=== PATIENT | female | born 1980 | race Caucasian/White ===

== ENCOUNTER 2016-11-16 22:24 | Emergency (ER) | payer OTHER ==
[2016-11-16 22:44] VITALS: BMI 26.2
--- NOTE | 2016-11-17 00:32 | PDOC ---
History of Present Illness - History of Present Illness Initial Comments: 11/17/16 01:29 Patient is a 36 year old female with significant medical hx of asthma who is presenting to the ED with 2-3 days of lower back pain. Patient complains of bilateral lower back pain that radiates up her back and that is constant. Her pain does not radiate downward or around to her abdomen. The patient also endorses some shortness of breath and an episode of nausea and vomiting. The patient states she's also had a metallic taste in her mouth since she vomited. Denies any fever, chills, cough, abdominal pain, chest pain, bladder/bowel incontinence, dysuria, hematuria, or urinary changes. The patient came to the ED wearing a heavy back pack that held her laptop and other personal belongings. She notes that she moved here recently but did not endorse from where. Denies recent trauma, injuries, or hx of nephrolithiasis. Surgical Hx: x 1 LNMP: 11/09/16 Social Hx: Half a pack a day for 18 years. Allergies: NKDA <Hannah Lebron - Last Filed: 11/17/16 01:38> <Avril Short - Last Filed: 11/17/16 02:51> - General Chief Complaint: Back Pain Stated Complaint: BACK PAIN Time Seen by Provider: 11/16/16 23:36 Past History <Hannah Lebron - Last Filed: 11/17/16 01:38> - Past Medical History Asthma: Yes - Psycho/Social/Smoking Cessation Hx Suicidal Ideation: No Smoking History: Current every day smoker Number of Cigarettes Smoked Daily: 10 Information on smoking cessation initiated: No <Avril Short - Last Filed: 11/17/16 02:51> - Past Medical History Allergies/Adverse Reactions: Allergies Allergy/AdvReac Type Severity Reaction Status Date / Time No Known Allergies Allergy Verified 11/17/16 00:11 Home Medications: Ambulatory Orders Albuterol Sulfate Inhaler - [Ventolin Hfa Inhaler -] 1 puff IH BID 11/17/16 Review of Systems - Review of Systems Comments:: 11/17/16 01:35 CONSTITUTIONAL: Absent: fever, chills, diaphoresis, generalized weakness, malaise, loss of appetite HEENT: Absent: rhinorrhea, nasal congestion, throat pain, throat swelling, difficulty swallowing, mouth swelling, ear pain, eye pain, visual changes CARDIOVASCULAR: Absent: chest pain, syncope, palpitations, irregular heart rate, lightheadedness , peripheral edema RESPIRATORY: Present: shortness of breath Absent: cough, dyspnea with exertion, orthopnea, wheezing, stridor, hemoptysis GASTROINTESTINAL: Present: nausea, vomiting Absent: abdominal pain, abdominal distension, diarrhea, constipation, melena, hematochezia GENITOURINARY: Absent: dysuria, frequency, urgency, hesitancy, hematuria, flank pain, genital pain MUSCULOSKELETAL: Present: lower back pain Absent: myalgia, arthralgia, joint swelling SKIN: Absent: rash, itching, pallor HEMATOLOGIC/IMMUNOLOGIC: Absent: easy bleeding, easy bruising, lymphadenopathy, frequent infections ENDOCRINE: Absent: unexplained weight gain, unexplained weight loss, heat intolerance, cold intolerance NEUROLOGIC: Absent: headache, focal weakness or paresthesia, dizziness, unsteady gait, seizure, mental status changes, bladder or bowel incontinence. PSYCHIATRIC: Absent: anxiety, depression, suicidal or homicidal ideation, hallucinations <Hannah Lebron - Last Filed: 11/17/16 01:38> *Physical Exam - Vital Signs Last Vital Signs Temp Pulse Resp BP Pulse Ox 98.4 F 84 18 105/66 98 11/16/16 22:41 11/16/16 22:41 11/16/16 22:41 11/16/16 22:41 11/16/16 23:30 - Physical Exam Comments: 11/17/16 01:36 GENERAL: Well developed, well nourished. Awake and alert. No acute distress. HEENT: Normocephalic, atraumatic. PERRLA, EOMI. No conjunctival pallor. Sclera are non- icteric. Moist mucous membranes. Oropharynx is clear. NECK: Supple. Full ROM. No JVD. Carotid pulses 2+ and symmetric, without bruits. No thyromegaly. No lymphadenopathy. CARDIOVASCULAR: Regular rate and rhythm. No murmurs, rubs, or gallops. Distal pulses are 2+ and symmetric. PULMONARY: No evidence of respiratory distress. Lungs clear to auscultation bilaterally. No wheezing, rales or rhonchi. ABDOMINAL: Soft. Non-tender. Non-distended. No rebound or guarding. No organomegaly. Normoactive bowel sounds. MUSCULOSKELETAL: No cervical or vertebral tenderness. Normal range of motion at all joints. No bony deformities or tenderness. No CVA tenderness. EXTREMITIES: No cyanosis. No clubbing. No edema. No calf tenderness. SKIN: Warm and dry. Normal capillary refill. No rashes. No jaundice. NEUROLOGICAL: Alert, awake, appropriate. Cranial nerves 2-12 intact. Normal speech. Gait is normal without ataxia. PSYCHIATRIC: Cooperative. Good eye contact. Appropriate mood and affect. <Hannah Lebron - Last Filed: 11/17/16 01:38> - Vital Signs Last Vital Signs Temp Pulse Resp BP Pulse Ox 98.4 F 84 18 105/66 98 11/16/16 22:41 11/16/16 22:41 11/16/16 22:41 11/16/16 22:41 11/16/16 23:30 <Avril Short - Last Filed: 11/17/16 02:51> Heart Score/ECG Review #1 11/17/16 01:39 Normal sinus rhythm at 69 bpm Normal ECG <Hannah Lebron - Last Filed: 11/17/16 01:38> ED Treatment Course - LABORATORY CBC & Chemistry Diagram: 11/17/16 00:58 11/17/16 00:58 - ADDITIONAL ORDERS Additional order review: 11/17/16 00:58 RBC 4.47 MCV 93.2 MCHC 33.5 RDW 13.5 MPV 7.9 Neutrophils % 55.2 Lymphocytes % 31.5 Monocytes % 7.9 Eosinophils % 4.5 Basophils % 0.9 <Hannah Lebron - Last Filed: 11/17/16 01:38> - LABORATORY CBC & Chemistry Diagram: 11/17/16 00:58 11/17/16 00:58 <Avril Short - Last Filed: 11/17/16 02:51> *DC/Admit/Observation/Transfer - Attestations Scribe Attestion: 11/17/16 01:37 Documentation prepared by Hannah Lebron, acting as medical office technologist for Avril Short MD. <Hannah Lebron - Last Filed: 11/17/16 01:38> <Avril Short - Last Filed: 11/17/16 02:51> Diagnosis at time of Disposition: Back pain - Discharge Dispostion Condition at time of disposition: Stable - Patient Instructions Printed Discharge Instructions: DI for Thoracic Back Pain
[2016-11-17 01:08] LABS: BASOPHIL 0.9 % (0-2.0); EOSINOPHIL 4.5 % (0-4.5); MCH 31.2 pg (25.7-33.7); MCHC 33.5 g/dl (32.0-36.0); MEAN CELL VOLUME 93.2 fl (80-96); MEAN PLT VOLUME 7.9 fl (7.5-11.1); NEUTROPHILS 55.2 % (42.8-82.8); PLATELET COUNT 295 K/MM3 (134-434); RDW 13.5 % (11.6-15.6); WHITE BLOOD COUNT 9.9 K/mm3 (4.0-10.0)
[2016-11-17 01:33] LABS: ANION GAP 6 (8-16); CALCIUM 8.7 mg/dL (8.5-10.1); CO2 27 mmol/L (21-32); CREATININE 0.6 mg/dL (0.55-1.02); GLUCOSE,RANDOM 89 mg/dL (74-106); SGOT/AST 16 U/L (15-37); SGPT/ALT 21 U/L (12-78)
[2016-11-17 01:34] LABS: TROPONIN I < 0.02 ng/ml (0.00-0.05)
[2016-11-17 01:35] LABS: ALK PHOS 42 U/L (45-117); BILIRUBIN,TOTAL 0.4 mg/dL (0.2-1.0); TOT PROT 6.8 g/dl (6.4-8.2)
[2016-11-17 01:50] LABS: URINE APPEARANCE CLEAR; URINE BILIRUBIN NEGATIVE (NEGATIVE); URINE BLOOD NEGATIVE (NEGATIVE); URINE COLOR YELLOW; URINE GLUCOSE (UA) NEGATIVE (NEGATIVE); URINE KETONE NEGATIVE (NEGATIVE); URINE LEUK ESTERASE NEGATIVE (NEGATIVE); URINE NITRITE NEGATIVE (NEGATIVE); URINE PROTEIN NEGATIVE (NEGATIVE); URINE UROBILINOGEN 2.0 E.U/dl E.U./dl (0.2-1.0)
[2016-11-17] MEDS ORDERED: IBUPROFEN 600 MG TABLET (FP) PO ONE ×2 (02:22→02:34)
--- NOTE | 2016-11-17 03:26 | PDOC ---
*Physical Exam - Vital Signs Last Vital Signs Temp Pulse Resp BP Pulse Ox 98.4 F 84 18 105/66 98 11/16/16 22:41 11/16/16 22:41 11/16/16 22:41 11/16/16 22:41 11/16/16 23:30 ED Treatment Course - LABORATORY CBC & Chemistry Diagram: 11/17/16 00:58 11/17/16 00:58 - ADDITIONAL ORDERS Additional order review: Laboratory Results 11/17/16 11/17/16 11/17/16 01:44 01:44 00:58 Sodium 140 Potassium 4.0 Chloride 107 Carbon Dioxide 27 Anion Gap 6 L BUN 14 Creatinine 0.6 Creat Clearance w eGFR > 60 Random Glucose 89 Calcium 8.7 Total Bilirubin 0.4 AST 16 ALT 21 Alkaline Phosphatase 42 L Creatine Kinase Troponin I Total Protein 6.8 Albumin 4.0 Urine Color Yellow Urine Appearance Clear Urine pH 6.0 Urine Protein Negative Urine Glucose (UA) Negative Urine Ketones Negative Urine Blood Negative Urine Nitrite Negative Urine Bilirubin Negative Urine Urobilinogen 2.0 e.u/dl H Ur Leukocyte Esterase Negative Urine HCG, Qual Negative 11/17/16 00:58 Sodium Potassium Chloride Carbon Dioxide Anion Gap BUN Creatinine Creat Clearance w eGFR Random Glucose Calcium Total Bilirubin AST ALT Alkaline Phosphatase Creatine Kinase 70 Troponin I < 0.02 Total Protein Albumin Urine Color Urine Appearance Urine pH Urine Protein Urine Glucose (UA) Urine Ketones Urine Blood Urine Nitrite Urine Bilirubin Urine Urobilinogen Ur Leukocyte Esterase Urine HCG, Qual 11/17/16 00:58 RBC 4.47 MCV 93.2 MCHC 33.5 RDW 13.5 MPV 7.9 Neutrophils % 55.2 Lymphocytes % 31.5 Monocytes % 7.9 Eosinophils % 4.5 Basophils % 0.9 - Medications Given in the ED: ED Medications Discontinued Medications Generic Name Dose Route Start Last Admin Trade Name Freq PRN Reason Stop Dose Admin Ibuprofen 600 mg 11/17/16 02:22 11/17/16 02:33 Motrin - PO 11/17/16 02:23 600 mg ONCE ONE Administration Medical Decision Making - Medical Decision Making 11/17/16 03:28 labs and xrays are negative. Pt to follow up with medicine *DC/Admit/Observation/Transfer Diagnosis at time of Disposition: Back pain - Discharge Dispostion Disposition: HOME Condition at time of disposition: Stable Admit: No - Referrals Referrals: Garfield Rolon MD [Staff Physician] - - Patient Instructions Printed Discharge Instructions: DI for Thoracic Back Pain - Post Discharge Activity
[2016-11-17 03:34] VITALS: BP 110/68; PULSE 80; TEMP 98.2
--- NOTE | 2016-11-17 14:39 | EKG ---
Test Reason : Blood Pressure : / mmHG Vent. Rate : 069 BPM Atrial Rate : 069 BPM P-R Int : 138 ms QRS Dur : 088 ms QT Int : 410 ms P-R-T Axes : 058 059 052 degrees QTc Int : 439 ms NORMAL SINUS RHYTHM WITH SINUS ARRHYTHMIA NORMAL ECG NO PREVIOUS ECGS AVAILABLE Confirmed by PHOENIX VALERIO, CARLOTTA ([id number]) on 11/17/2016 2:39:07 PM Referred By: Confirmed By:CARLOTTA GARIBAY MD
== END 2016-11-17 03:35 | disposition home or self-care (01) ==
LOC: JER 22:24
DX: M54.5 Low back pain (principal); J45.909 Unspecified asthma, uncomplicated; F17.210 Nicotine dependence, cigarettes, uncomplicated
CPT/HCPCS: 36415; 71020-TC; 72100-TC; 80053; 81003; 82550; 84484; 84703; 85025; 93005; 93010; 99282-25

== ENCOUNTER 2017-03-31 18:34 | Emergency (ER) | payer OTHER ==
[2017-03-31 18:53] VITALS: BP 138/69; PULSE 100; TEMP 98.8; BMI 26.5
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
--- NOTE | 2017-03-31 22:28 | PDOC ---
*Physical Exam - Vital Signs Last Vital Signs Temp Pulse Resp BP Pulse Ox 98.8 F 100 H 20 138/69 99 03/31/17 18:49 03/31/17 18:49 03/31/17 18:49 03/31/17 18:49 03/31/17 18:49 - Physical Exam Comments: 03/31/17 22:30 Adult PE GENERAL: Well developed, well nourished. Awake and alert. No acute distress. HEENT: Normocephalic, atraumatic. PERRLA, EOMI. No conjunctival pallor. Sclera are non- icteric. Moist mucous membranes. Oropharynx is clear. NECK: Supple. Full ROM. No JVD. Carotid pulses 2+ and symmetric, without bruits. No thyromegaly. No lymphadenopathy. CARDIOVASCULAR: Regular rate and rhythm. No murmurs, rubs, or gallops. Distal pulses are 2+ and symmetric. PULMONARY: No evidence of respiratory distress. Lungs clear to auscultation bilaterally. No wheezing, rales or rhonchi. ABDOMINAL: Soft. Non-tender. Non-distended. No rebound or guarding. No organomegaly. Normoactive bowel sounds. MUSCULOSKELETAL Normal range of motion at all joints. No bony deformities or tenderness. No CVA tenderness. PELVIC: Pelvic deferred to transvaginal US. EXTREMITIES: No cyanosis. No clubbing. No edema. No calf tenderness. SKIN: Warm and dry. Normal capillary refill. No rashes. No jaundice. NEUROLOGICAL: Alert, awake, appropriate. Cranial nerves 2-12 intact. No deficits to light touch and temperature in face, upper extremities and lower extremities. No motor deficits in the in face, upper extremities and lower extremities. Normoreflexic in the upper and lower extremities. Normal speech. Toes are downgoing bilaterally. Gait is normal without ataxia. PSYCHIATRIC: Cooperative. Good eye contact. Appropriate mood and affect. <Ari Brown - Last Filed: 03/31/17 22:30> - Vital Signs Last Vital Signs Temp Pulse Resp BP Pulse Ox 98.8 F 100 H 20 138/69 99 03/31/17 18:49 03/31/17 18:49 03/31/17 18:49 03/31/17 18:49 03/31/17 18:49 - Physical Exam General Appearance: Yes: Nourished <Sinisterra,Aguilar - Last Filed: 03/31/17 23:28> Medical Decision Making - Medical Decision Making 03/31/17 23:25 Dr. Scott: The scribe's documentation has been prepared under my direction and personally reviewed by me in its entirery. I confirm that the note above accurately reflects all work, treatment, procedures, and medical decision making performed by me. Pt eloped as she was going to US to evaluate for ectopic Pt was AAOx3 as she was here in the department. No need for recall as pt knows severity and necessity of evaluation. <Aguilar Scott - Last Filed: 03/31/17 23:28> *DC/Admit/Observation/Transfer - Attestations Scribe Attestion: 03/31/17 22:30 Documentation prepared by Ari Brown, acting as medical technologist hematology for Aguilar Scott DO. <Ari Brown - Last Filed: 03/31/17 22:30> - Discharge Dispostion Admit: No <Aguilar Scott - Last Filed: 03/31/17 23:28> Diagnosis at time of Disposition: At risk for elopement - Discharge Dispostion Disposition: ELOPED Condition at time of disposition: Stable - Patient Instructions Printed Discharge Instructions: Home and Clinic Tests
[2017-03-31 22:39] LABS: URINE APPEARANCE SLCLOUDY; URINE BILIRUBIN NEGATIVE (NEGATIVE); URINE BLOOD NEGATIVE (NEGATIVE); URINE COLOR LTYELLOW; URINE GLUCOSE (UA) NEGATIVE (NEGATIVE); URINE KETONE NEGATIVE (NEGATIVE); URINE NITRITE NEGATIVE (NEGATIVE); URINE PROTEIN NEGATIVE (NEGATIVE); URINE UROBILINOGEN NEGATIVE mg/dL (0.2-1.0)
[2017-04-01 01:51] LABS: BASOPHIL 0.7 % (0-2.0); EOSINOPHIL 4.4 % (0-4.5); MCH 31.8 pg (25.7-33.7); MCHC 34.5 g/dl (32.0-36.0); MEAN CELL VOLUME 92.1 fl (80-96); MEAN PLT VOLUME 7.7 fl (7.5-11.1); PLATELET COUNT 316 K/MM3 (134-434); RDW 13.4 % (11.6-15.6); WHITE BLOOD COUNT 9.5 K/mm3 (4.0-10.0)
[2017-04-01 02:09] LABS: INR 0.96 (0.82-1.09); PROTHROMBIN TIME (PATIENT) 10.9 SEC (9.98-11.88)
[2017-04-01 02:19] LABS: ALBUMIN 4.1 g/dl (3.4-5.0); ANION GAP 10 (8-16); BILIRUBIN,TOTAL 0.4 mg/dL (0.2-1.0); CALCIUM 8.3 mg/dL (8.5-10.1); CO2 22 mmol/L (21-32); CREATININE 0.5 mg/dL (0.55-1.02); GLUCOSE,RANDOM 88 mg/dL (74-106); SGOT/AST 13 U/L (15-37); SGPT/ALT 19 U/L (12-78); TOT PROT 6.9 g/dl (6.4-8.2)
[2017-04-01 02:21] LABS: ALK PHOS 38 U/L (45-117)
[2017-04-01 11:09] LABS: URINE LEUK ESTERASE Negative (NEGATIVE)
== END 2017-04-01 03:20 | disposition home or self-care (01) ==
LOC: JER 18:34
DX: O26.899 Other specified pregnancy related conditions, unspecified trimester (principal); Z3A.00 Weeks of gestation of pregnancy not specified; F17.210 Nicotine dependence, cigarettes, uncomplicated; J45.909 Unspecified asthma, uncomplicated
CPT/HCPCS: 36415; 76830-TC; 80053; 81003; 84702; 84703; 85025; 85610; 86850; 86900; 86901; 99282-25

== ENCOUNTER → 2018-04-23 | Emergency (ER) | payer SELFPAY ==
--- NOTE | 2018-04-23 03:51 | PDOC ---
Attending Attestation - Resident Resident Name: RandyDonnell - ED Attending Attestation I have performed the following: I have examined & evaluated the patient, The case was reviewed & discussed with the resident, I agree w/resident's findings & plan - HPI HPI: 04/23/18 04:48 Pt comes with 5 days of chest pain. - Physicial Exam PE: 04/23/18 06:08 Afebrile, skin: no rash, lungs clear, abd soft NT ND. - Medical Decision Making 04/23/18 04:48 EKG is NSR CXR pending labs pending exam normal 04/23/18 06:13 Pt will be possibly be admitted to ED obs for Psych eval; also for Infetious disease consult Pt will be signed out to the day ER team. Heart Score/ECG Review - ECG Intrepretation Rhythm: Regular Rhythm - P and MN Prominent R with upright T in V1 (true posterior VA): No Delta Wave(s) Present: No WPW: No - ST and T Early Repolarization: No Non Specific ST-T Wave changes: No - ECG Impressions Normal ECG: Yes Non-specific ST Elevation: No Ischemic Changes: No Bradycardia: No
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
[2018-04-23 04:51] LABS: URINE APPEARANCE CLEAR; URINE BILIRUBIN NEGATIVE (<2.0 mg/dL); URINE COLOR YELLOW; URINE GLUCOSE (UA) NEGATIVE (NEGATIVE); URINE KETONE NEGATIVE (NEGATIVE); URINE LEUK ESTERASE NEGATIVE (NEGATIVE); URINE NITRITE NEGATIVE (NEGATIVE); URINE PROTEIN NEGATIVE (NEGATIVE); URINE UROBILINOGEN 4.0 E.U/dl mg/dL (0.2-1.0)
[2018-04-23 04:53] LABS: HCG,QUALITATIVE URINE Negative
[2018-04-23 04:58] LABS: BASO % 0.7 % (0-2.0); EOS % 27.3 % (0-4.5); HEMATOCRIT 40.6 % (32.4-45.2); HEMOGLOBIN 14.4 GM/dL (10.7-15.3); MCH 32.7 pg (25.7-33.7); MCHC 35.3 g/dl (32.0-36.0); MEAN CELL VOLUME 92.7 fl (80-96); MEAN PLT VOLUME 8.2 fl (7.5-11.1); MONO % 7.1 % (3.8-10.2); NEUT % 37.9 % (42.8-82.8); PLATELET COUNT 315 K/MM3 (134-434); RBC 4.39 M/mm3 (3.60-5.2); RDW 13.5 % (11.6-15.6); WHITE BLOOD COUNT 13.2 K/mm3 (4.0-10.0)
[2018-04-23 05:00] LABS: INR 1.03 (0.83-1.09); PROTHROMBIN TIME (PATIENT) 12.1 SEC (9.7-13.0)
[2018-04-23 05:02] LABS: ACTIVATED PTT 28.1 SECONDS (25.2-36.5)
[2018-04-23 05:05] VITALS: BMI 28.3
[2018-04-23 05:11] LABS: ALBUMIN 3.8 g/dl (3.4-5.0); ALK PHOS 43 U/L (45-117); ANION GAP 7 MMOL/L (8-16); BILIRUBIN,TOTAL 0.4 mg/dL (0.2-1); BLOOD UREA NITROGEN 14 mg/dL (7-18); CALCIUM 8.9 mg/dL (8.5-10.1); CHLORIDE 109 mmol/L (98-107); CO2 25 mmol/L (21-32); CREATININE 0.7 mg/dL (0.55-1.3); GLUCOSE,RANDOM 94 mg/dL (74-106); SGOT/AST 16 U/L (15-37); SGPT/ALT 22 U/L (13-61); SODIUM 141 mmol/L (136-145); TOT PROT 6.8 g/dl (6.4-8.2)
[2018-04-23 06:19] LABS: PLATELET ESTIMATE ADEQUATE
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
--- NOTE | 2018-04-23 11:53 | EKG ---
Test Reason : Blood Pressure : / mmHG Vent. Rate : 068 BPM Atrial Rate : 068 BPM P-R Int : 144 ms QRS Dur : 086 ms QT Int : 394 ms P-R-T Axes : 063 067 058 degrees QTc Int : 418 ms NORMAL SINUS RHYTHM NORMAL ECG WHEN COMPARED WITH ECG OF 17-NOV-2016 00:51, NO SIGNIFICANT CHANGE WAS FOUND Confirmed by ALIREZA DAVISON MD ([id number]) on 04/23/2018 11:52:59 AM Referred By: Confirmed By:ALIREZA DAVISON MD
[2018-04-23 12:04] VITALS: BP 102/63; PULSE 64; TEMP 97.5
--- NOTE | 2018-04-23 13:03 | CON.PSY ---
Psychiatry Consult Chief Complaint: I am Bipolar , I came for asthma. Amish ok, I am not going to hurt myself. I live with my MOM. Patient had been on Haldol injections and Seroquel 100mg po hs and sees Psych at [address] [place] [address] in [place]. HAs an apapointment on 05/03. - Previous Psychiatric Treatment Outpatient: Less than 6 mos ago Inpatient: None - Previous Substance Abuse Treatment Outpatient: None Inpatient: None - Reason for Previous Treatment Reason for Previous Treatment: Biploar Illness - Allergies Allergies: Allergies Allergy/AdvReac Type Severity Reaction Status Date / Time No Known Allergies Allergy Verified 04/23/18 03:58 - Current Living Status Usual Living Arrangement: With Parent - Current Mental Status Evaluation Appearance: Well Groomed Attitude: Cooperative - Affect Affect: Full Range Appropriateness: Not Appropriate, Appropriate to Content - Mood Mood: Euthymic, Euphoric - Speech/Language Expressive: Coherent - Psychomotor Activity Psychomotor Activity: Normal - Thought Process Thought Process: Intact - Thought Content Hallucinations: Absent Delusions: Absent - Self Perception Self Perception: No Impairment - Cognition Attention: Alert Orientation: Time Memory, Immediate Recall: Intact Memory, Remote with Promptin/3 - Concentration Serial Sevens Intact: No - Abstraction Proverb Interpretation: Intact Judgement: Minimally Impaired - Insight Insight: Intact - Impulse Control Impulse Control: Good Control - Suicidal Ideation Suicidal Ideation: No - Homicidal Ideation Homicidal Ideation: No Assessment/Plan 1)n Seroquel 100mg po hs for 2weeks. 2) follow up at [address] [place] [address] clinic on 05/03.
== END | disposition home or self-care (01) ==
LOC: JER 03:40
DX: R07.9 Chest pain, unspecified (principal); D72.1 Eosinophilia
CPT/HCPCS: 36415; 71046-TC-FY; 71275-TC; 80053; 81003; 82550; 84484; 84703; 85025; 85610; 85730; 86682; 93005; 93010; 99283-25